=== PATIENT | female | born 1995 | race African-American/Black ===

== ENCOUNTER 2017-04-25 13:34 | Inpatient (IN) ==
[2017-04-25] MEDS ORDERED: SODIUM CHLORIDE 0.9% 1,000 ML IV STA (14:08)
[2017-04-25 14:20] LABS: Basophils # 0.1 10*3/uL (0.0-0.2); Basophils % 0.4 % (0.0-0.8); Eosinophils % 0.1 % (0.00-10.9); Hematocrit 36.5 VOL% (35.7-47.0); Hemoglobin 11.3 GM/DL (12.0-16.0); Immature Granulocytes Absolute 0.44 #; Lymphocytes # 1.6 10*3/uL (1.4-4.0); Lymphocytes % 10.5 % (21.3-54.2); Mean Corpuscular Hemoglobin 29 PG (27-34); Mean Corpuscular Volume 91.9 FL (87-102); Mean Platelet Volume 11.9 FL (9.6-12.0); Monocytes # 0.9 10*3/uL (0.11-0.8); Monocytes % 6.2 % (1.7-12.7); Neutrophils # 11.9 10*3/uL (1.4-7.4); Neutrophils % 79.8 % (38.7-73.9); Platelet Count 293 T/CUMM (130-400); Red Blood Count 3.97 MC/CUMM (3.8-5.5); Red Cell Distribution Width 12.8 % (9.3-17.3); White Blood Count 14.9 T/CUMM (4-12)
[2017-04-25 14:30] LABS: Apearance,Urine CLEAR (Clear); Bilirubin,Urine Negative (Negative); Blood, Urine Moderate mg/dL (Negative); Glucose,Urine (UA) >=500 mg/dL (Negative); Hyaline Casts,Urine 1 /LPF (0-3); Ketones,Urine 80 mg/dL (Negative); Nitrite,Urine Negative (Negative); Protein,Urine 30 MG/DL; RBC,Urine 2 /HPF (0-4); Urine Color Straw (Yellow); Urine Specific Gravity 1.014 (1.001-1.035); Urine Urobilinogen < 2.0 EU/DL (0.2-1.0); WBC,Urine 1 /HPF (0-6)
[2017-04-25] MEDS ORDERED: INSULIN REGULAR 100 UNIT/ML IV STA (14:32)
[2017-04-25 14:35] LABS: ABG Base Excess -20.3 MMOL/L (-2.5-2.5); ABG HCO3 6.8 MMOL/L (20-26); ABG Oxygen Saturation 98.7 % (95-100); ABG PO2 198.9 MM HG (80-95); ABG TCO2 7.4 MMOL/L (23-27)
[2017-04-25 14:37] LABS: ABG PCO2 20.2 MM HG (35-48); ABG PH 7.144 (7.35-7.45)
[2017-04-25 14:38] LABS: Barbiturates Screen,Urine Negative (Negative); Benzodiazepines Screen,Urine Negative (Negative); Cannabinoid Screen,Urine Negative (Negative); Opiate Screen,Urine Negative (Negative); Phencyclidine Screen,Urine Negative (Negative)
[2017-04-25] MEDS ORDERED: INSULIN REGULAR 100 UNIT/ML ONE (14:38)
[2017-04-25 14:46] LABS: Bilirubin,Total 0.7 MG/DL (0.2-1.0); Calcium 10.3 MG/DL (8.5-10.1); Osmolality,Calculated 318.2 MOS/KG (273-304); Potassium 5.3 MMOL/L (3.5-5.1); Total Protein 7.2 G/DL (6.4-8.3)
--- NOTE | 2017-04-25 14:53 | XRay Report ---
Exam: XR chest 1V portable Date: 04/25/2017 2:06 PM Indication: Altered mental status Comparison: 02/04/2017 Technical: AP portable Findings: A few reticular nodular densities are present perihilar regions. A wire superimposes the neck chest abdomen and telemetry leads are also present. Mediastinum is unremarkable. No obvious infiltrate or effusion. The heart is at upper limits of normal. Impression: 1. No acute cardiopulmonary pathology. PROCEDURE INTERPRETED AT [facility] DEPARTMENT OF RADIOLOGY Final Report Signed by: Dr. Jsoé Luis Gomez
[2017-04-25] MEDS ORDERED: INSULIN REGULAR 100 UNIT/ML IV ONE (14:54)
[2017-04-25] MEDS ORDERED: SODIUM CHLORIDE 0.9% IV PRN (14:54)
[2017-04-25] MEDS ORDERED: SODIUM CHLORIDE 0.9% 1,000 ML IV ONE ×2 (14:54→17:20)
[2017-04-25] MEDS ORDERED: DEXTROSE 50% 25 GM/50 ML VIAL IV PRN ×2 (14:54)
[2017-04-25] MEDS ORDERED: ACETAMINOPHEN 325 MG TABLET PO PRN (14:54)
[2017-04-25] MEDS ORDERED: SODIUM BICARB INJ 100 MEQ in STERILE WATER INJ 400 ML IV PRN (14:54)
[2017-04-25] MEDS ORDERED: POTASSIUM CHLORIDE RIDER 10 MEQ in PREMIX 1 EACH IV PRN (14:54)
[2017-04-25] MEDS ORDERED: MAGNESIUM SULF RIDER 2 GM in PREMIX 1 EACH IV PRN (14:54)
[2017-04-25] MEDS ORDERED: ONDANSETRON 4 MG/2 ML VIAL IV PRN (14:54)
[2017-04-25] MEDS ORDERED: MAGNESIUM SULF RIDER 4 GM in PREMIX 1 EACH IV PRN (14:54)
[2017-04-25] MEDS ORDERED: SODIUM PHOSPHATE IV PRN (14:54)
[2017-04-25] MEDS ORDERED: INSULIN REGULAR DRIP 100 ML IV SCH (15:00)
[2017-04-25] MEDS ORDERED: ENOXAPARIN 30 MG/0.3 ML SYRINGE SUBCUT SCH (15:00)
--- NOTE | 2017-04-25 15:03 | Hospitalist History & Physical ---
Assessment and Plan - Time spent with patient Time spent with patient: Greater than 30 minutes (1) DKA (diabetic ketoacidoses) Status: Acute Assessment and plan: Admit to CCU. Routine DKA protocols. Aggressive IV fluid hydration. Monitor with labs per protocol. Current Visit: Yes Qualifiers: Diabetes mellitus type: type 1 Diabetes mellitus complication detail: without coma Qualified Code(s): E10.10 - Type 1 diabetes mellitus with ketoacidosis without coma (2) ANGELA (acute kidney injury) Status: Acute Assessment and plan: Continue IV fluids. This is related to dehydration secondary to DKA. Current Visit: Yes (3) Lactic acidosis Status: Acute Assessment and plan: Secondary to hypotension and hypoperfusion secondary to DKA and dehydration with acute renal failure. Current Visit: Yes (4) Hypothyroidism Status: Chronic Current Visit: Yes Qualifiers: Hypothyroidism type: acquired Qualified Code(s): E03.9 - Hypothyroidism, unspecified (5) Down syndrome Status: Chronic Current Visit: Yes History of Present Illness History of present illness: Ms. Lowe is a 21 year old female Home Medications Medication Instructions Recorded Confirmed Type Insulin Lispro [HumaLOG] 10 unit SUBCUT BID #100 ml 02/06/17 Rx Insulin NPH [HumuLIN N] 17 unit SUBCUT QPM #100 ml 02/06/17 Rx Insulin NPH [HumuLIN N] 35 unit SUBCUT QAM #100 ml 02/06/17 Rx Pantoprazole Tab [Protonix Tab] 40 mg PO BID #60 tablet 02/06/17 Rx Levothyroxine Tab [Synthroid Tab] 75 mcg PO DAILY@0700 04/25/17 History Allergies Allergy/AdvReac Type Severity Reaction Status Date / Time No Known Allergies Allergy Verified 04/25/17 14:02 Medical,Surgical,& Family Hx - Medical History Cardio: History of: Hypertension No history of: Cardiac Dysrhythmia, Congenital Heart Disease Neurology: History of: Cerebrovascular Accident, Neurological Problems No history of: Seizures Endocrine: History of: Diabetes Mellitus (IDDM), Dyslipidemia, Thyroid Disorder Respiratory: No history of: Asthma - Surgical History Cardiac Surgeries: Patient Denies: Cardiac Catheterization HEENT Surgeries: Surgical HX of: Tonsilectomy & Adenoidectomy Abdominal Surgeries: Patient denies: Abdominal Surgery Reproductive Surgeries: Patient denies;: Genitourinary Surgery, Gynecologic Surgery - Family History Family History: Reports;: Family Diabetes (mother), Family Hypertension - Social History Smoking Status: Never smoker Frequency of Alcohol Use: None Type of Drug Use: None Exam - Constitutional Vitals: Period Temp Pulse Resp BP Sys/Robertson Pulse Ox Last 24 Hr 98.8 F 161 20 83/46 96 Results - Labs CBC & BMP: 04/25/17 13:49 04/25/17 14:09
--- NOTE | 2017-04-25 15:04 | Hospitalist History & Physical ---
Assessment and Plan - Time spent with patient Time spent with patient: Greater than 30 minutes (1) DKA (diabetic ketoacidoses) Status: Acute Assessment and plan: Admit to CCU. Routine DKA protocols. Aggressive IV fluid hydration. Monitor with labs per protocol. Current Visit: Yes Qualifiers: Diabetes mellitus type: type 1 Diabetes mellitus complication detail: without coma Qualified Code(s): E10.10 - Type 1 diabetes mellitus with ketoacidosis without coma (2) ANGELA (acute kidney injury) Status: Acute Assessment and plan: Continue IV fluids. This is related to dehydration secondary to DKA. Current Visit: Yes (3) Lactic acidosis Status: Acute Assessment and plan: Secondary to hypotension and hypoperfusion secondary to DKA and dehydration with acute renal failure. Current Visit: Yes (4) Hypothyroidism Status: Chronic Current Visit: Yes Qualifiers: Hypothyroidism type: acquired Qualified Code(s): E03.9 - Hypothyroidism, unspecified (5) Down syndrome Status: Chronic Current Visit: Yes History of Present Illness Chief complaint: Altered Mental Status History of present illness: Ms. Lowe is a 21 year old female carried into the ED by her Mother with c/o altered mental status. Patient has Down syndrome and is unable to provide any history. Mother says Patient became altered yesterday evening but is now lethargic. Mother says Patient was sleeping on the couch and would not wake upon stimuli. Patient has PMHx of HTN, CVA, IDDM, dyslipidemia, and thyroid disorder. Patient's Primary Care Provider is Dr. Rhoades. The patient is accompanied by her mother and father. They report she went to a birthday democrat yesterday. They deny any changes in her insulin regimen at home. They report that she looked a little dehydrated but was drinking fluids yesterday. Today she is tachycardic hypotensive and in DKA with a CO2 of 9 and a pH of 7.1. She is being admitted to the CCU for IV fluid hydration and IV insulin therapy. They deny any recent illness illness, no fever or chills. Home Medications Medication Instructions Recorded Confirmed Type Insulin Lispro [HumaLOG] 10 unit SUBCUT BID #100 ml 02/06/17 Rx Insulin NPH [HumuLIN N] 17 unit SUBCUT QPM #100 ml 02/06/17 Rx Insulin NPH [HumuLIN N] 35 unit SUBCUT QAM #100 ml 02/06/17 Rx Pantoprazole Tab [Protonix Tab] 40 mg PO BID #60 tablet 02/06/17 Rx Levothyroxine Tab [Synthroid Tab] 75 mcg PO DAILY@0700 04/25/17 History Allergies Allergy/AdvReac Type Severity Reaction Status Date / Time No Known Allergies Allergy Verified 04/25/17 14:02 Medical,Surgical,& Family Hx - Medical History Cardio: History of: Hypertension No history of: Cardiac Dysrhythmia, Congenital Heart Disease Neurology: History of: Cerebrovascular Accident, Neurological Problems No history of: Seizures Endocrine: History of: Diabetes Mellitus (IDDM), Dyslipidemia, Thyroid Disorder Respiratory: No history of: Asthma - Surgical History Cardiac Surgeries: Patient Denies: Cardiac Catheterization HEENT Surgeries: Surgical HX of: Tonsilectomy & Adenoidectomy Abdominal Surgeries: Patient denies: Abdominal Surgery Reproductive Surgeries: Patient denies;: Genitourinary Surgery, Gynecologic Surgery - Family History Family History: Reports;: Family Diabetes (mother), Family Hypertension - Social History Smoking Status: Never smoker Frequency of Alcohol Use: None Type of Drug Use: None Marital Status: Single Lives With:: Parent Functional capacity: independent ambulation ROS unobtainable: due to mental status, due to encephalopathy Exam - Constitutional Vitals: Period Temp Pulse Resp BP Sys/Robertson Pulse Ox Last 24 Hr 98.8 F 161 20 83/46 96 Exam: Constitutional System: Mild distress. No tremulousness. Minimally responsive. Head: Normocephalic, atraumatic. Ears, Nose and Throat System: No pain or tenderness. No epistaxis or discharge. Mucous membranes dry Eyes System: Pupils equal, round, and reactive. Extraocular muscles intact. Neck: Supple, without adenopathy, No jugular venous distention. No thyromegaly, neck mass, or prior surgery apparent. Respiratory System: Chest clear to auscultation. Cardiovascular System: Heart with tachycardic rate and rhythm. No murmur. GI System: Abdomen soft, nontender. Normo active bowel sounds present. Musculoskeletal System: limbs with no pedal edema. Full distal pulses. Neurological System: Altered mental status secondary to DKA Psychiatric System: Unable to assess secondary to mental status and clinical condition Results - Labs CBC & BMP: 04/25/17 13:49 04/25/17 14:09 Lab Results: I have reviewed the past 24 hour labs - EKG EKG shows: tachycardia - Diagnostic Findings Procedure: Abdominal x-ray: image reviewed by me, KUB x-ray: image reviewed by me Sepsis - Sepsis Possible / Suspected infection from: The patient's abnormal vital signs are related to DKA Sepsis documentation within 6 hours of presentation: fluid change - Physical Exam Respiratory exam: clear to auscultation bilaterally Capillary Refill: Greater Than 3 Seconds Peripheral pulses: Radial (L): 2+, Radial (R): 2+, Dorsalis Pedis (L) PM: 2+, Dorsalis Pedis (R) PM: 2+, Posterior Tibialis (L): 2+, Posterior Tibialis (R): 2 + Cardiovascular exam: tachycardia Skin exam: normal color
--- NOTE | 2017-04-25 15:11 | XRay Report ---
Exam: XR abdomen 1V Date: 04/25/2017 Indication: Central line guidewire placement Comparison: None Technical:Supine portable abdomen Findings: A wire superimposes the right abdomen appears be over the IVC iliac vein area on the left. The liver, spleen and renal shadows are not well seen. Nonspecific GI pattern is present. Bony structures are intact. Impression: 1. Nonspecific GI pattern. 2. Guidewire foreign body superimposes the chest abdomen and pelvis. Critical test report discussed with Dr. Bender. Dr. Love has been notified to retrieve the foreign body PROCEDURE INTERPRETED AT [facility] DEPARTMENT OF RADIOLOGY Final Report Signed by: Dr. José Luis Gomez
[2017-04-25] MEDS ORDERED: INSULIN REGULAR DRIP 100 ML IV ONE (15:14)
[2017-04-25 15:53] LABS: Band Neutrophils 2 % (0-10); Lymphocytes 13 % (20-55); Platelet Estimate Normal; Polychromasia Slight; Segmented Neutrophils 80 % (50-85); Total Cells Counted 100
--- NOTE | 2017-04-25 16:04 | Post Interventional Procedure ---
Pre-op diagnosis: Guide wire retained in SVC-IVC, fragile PIV access Post-op diagnosis: same Procedure: 1. Retrieval of guide wire via right subclavian vein 2. Triple lumen catheter placement in venotomy site Flouroscopy: 10.2 min Radiologist: Sinan Love Anesthesia: local Specimens: none sent Estimated blood loss: none Complications: none Description/Findings: Central line ok to use Assessment and Plan - Time spent with patient Time spent with patient: Greater than 30 minutes
--- NOTE | 2017-04-25 16:06 | Emergency Department Note ---
Lebron Medina Brooke, am scribing for, and in the presence of, Elsy Bender DO 14:28 . INapoleon Debra, DO, personally performed the services described in this documentation, ascribed by Tiffanie Diana in my presence, and it is both accurate and complete [id number] . Arrival - Arrival Chief Complaint: Altered Mental Status Stated Complaint: DEHYDRATED, NOT RESPONDING ED Nursing Triage Note: pt to er 20 with c/o having ams onset this am per mother. mother states pt began to become lethargic yesterday and then today she was sleeping on the couch and the mother tried to wake her up and she wouldnt arouse. Mode of Arrival: Carried Limitations: Altered Mental Status Source: Patient, Family (Mother), RN Notes Reviewed Time Seen by Provider: 04/25/17 14:00 - History of Present Illness HPI Narrative: Patient is a 21 year old female carried into the ED by her Mother with c/o altered mental status. Patient is a poor historian. Mother says Patient became altered yesterday evening but is now lethargic. Mother says Patient was sleeping on the couch and would not wake upon stimuli. Patient has PMHx of HTN, CVA, IDDM, dyslipidemia, and thyroid disorder. Patient's Primary Care Provider is Dr. Parish. Onset (ago): day(s) (1) Allergies/Adverse Reactions: Allergies Allergy/AdvReac Type Severity Reaction Status Date / Time No Known Allergies Allergy Verified 04/25/17 14:02 Home Medications: Home Medications Medication Instructions Recorded Confirmed Type Pantoprazole Tab [Protonix Tab] 40 mg PO BID #60 tablet 02/06/17 04/25/17 Rx Aspirin EC Tab 81 mg PO DAILY 04/25/17 04/25/17 History Insulin Lispro [HumaLOG] 10 unit SUBCUT QPM 04/25/17 04/25/17 History Insulin NPH [HumuLIN N] 10 unit SUBCUT QPM 04/25/17 04/25/17 History Insulin NPH [HumuLIN N] 40 unit SUBCUT QAM 04/25/17 04/25/17 History Insulin Regular [HumuLIN R] 1 unit SUBCUT AC LUNCH 04/25/17 04/25/17 History Levothyroxine Tab [Synthroid Tab] 75 mcg PO DAILY@0700 04/25/17 04/25/17 History Review of System - Review of System ROS unobtainable: due to mental status - Review of System Constitutional: Absent: fever Respiratory: Absent: respiratory distress Skin: Absent: rash Neurological: Present: other (lethargic- Altered mental status) Medical,Surgical,& Family Hx - Medical History Cardio: History of: Hypertension No history of: Cardiac Dysrhythmia, Congenital Heart Disease Neurology: History of: Cerebrovascular Accident, Neurological Problems No history of: Seizures Endocrine: History of: Diabetes Mellitus (IDDM), Dyslipidemia, Thyroid Disorder Respiratory: No history of: Asthma - Surgical History Cardiac Surgeries: Patient Denies: Cardiac Catheterization HEENT Surgeries: Surgical HX of: Tonsilectomy & Adenoidectomy Abdominal Surgeries: Patient denies: Abdominal Surgery Reproductive Surgeries: Patient denies;: Genitourinary Surgery, Gynecologic Surgery - Family History Family History: Reports;: Family Diabetes (mother), Family Hypertension - Social History Smoking Status: Never smoker Frequency of Alcohol Use: None Type of Drug Use: None Exam Vital Signs: Vital Signs Temperature 98.8 F 04/25/17 20:00 Pulse Rate 142 H 04/25/17 20:00 Respiratory Rate 18 04/25/17 20:00 Blood Pressure 88/33 04/25/17 20:00 O2 Sat by Pulse Oximetry 94 L 04/25/17 20:00 - General Exam limited due to: ALOC General appearance: lethargic - Head Head exam: Present: atraumatic, normocephalic - Respiratory Respiratory exam: Present: other (tachypnea) Procedures - Central Line Placement Left Femoral Time Out Performed: Yes Patient Placed on Monitor/Pulse Ox: Yes Prep: gloves Central Line Prep: Povidone-Iodine 1% Ultrasound Used for Placement: No Central Line Lumen Inserted: triple Complications: lost guide wire Additional Comments: called interventional radiologist to remove guide wire and put in triple lumen cvc Results - Labs CBC & BMP: 04/25/17 13:49 04/25/17 19:25 Lab Results: I have reviewed the patients labs Labs: Laboratory Tests 04/25/17 04/25/17 04/25/17 13:49 14:09 14:09 WBC 14.9 H RBC 3.97 Hgb 11.3 L Hct 36.5 MCV 91.9 MCH 29 MCHC 31.0 L RDW 12.8 Plt Count 293 MPV 11.9 Neut % (Auto) 79.8 H Lymph % (Auto) 10.5 L Coleman % (Auto) 6.2 Eos % (Auto) 0.1 Baso % (Auto) 0.4 Neut # (Auto) 11.9 H Lymph # (Auto) 1.6 Coleman # (Auto) 0.9 H Eos # (Auto) 0.0 Baso # (Auto) 0.1 Total Counted Pending Immature Gran % 3.0 Nucleated RBC % 0.0 Immature Gran # 0.44 Nucleated RBCs # 0.00 ABG pH ABG pCO2 ABG pO2 ABG HCO3 ABG Total CO2 ABG O2 Saturation ABG Base Excess Sodium 134 L Potassium 5.3 H Chloride 96 L Carbon Dioxide 9 L Anion Gap 34.3 H BUN 26 H Creatinine 1.80 H GFR Calculation 35 BUN/Creatinine Ratio 14.00 Glucose 925 H* Calculated Osmolality 318.2 H Lactic Acid Calcium 10.3 H Magnesium 2.0 Total Bilirubin 0.70 AST 23 ALT 34 Alkaline Phosphatase 136 H Total Protein 7.2 Albumin 3.0 L Globulin 4.2 H Albumin/Globulin Ratio 0.7 L Amylase 28 Lipase 47.0 L b-Hydroxybutyric mmol/L 5.1 H Urine Color Straw Urine Appearance Clear Urine pH 6.0 Ur Specific [place] 1.014 Urine Protein 30 Urine Glucose (UA) >=500 Urine Ketones 80 Urine Blood Moderate Urine Nitrate Negative Urine Bilirubin Negative Urine Urobilinogen < 2.0 H Urine Leukocytes Negative Urine RBC 2 Urine WBC 1 Hyaline Casts 1 Ur Culture Indicated? Not indicated Urine Test Negative Urine Opiates Screen Ur Barbiturates Screen Ur Phencyclidine Scrn U Amphetamine/Methamph U Benzodiazepines Scrn U Cocaine Metab Screen U Cannabinoids Screen 04/25/17 04/25/17 04/25/17 14:09 14:09 14:28 WBC RBC Hgb Hct MCV MCH MCHC RDW Plt Count MPV Neut % (Auto) Lymph % (Auto) Coleman % (Auto) Eos % (Auto) Baso % (Auto) Neut # (Auto) Lymph # (Auto) Coleman # (Auto) Eos # (Auto) Baso # (Auto) Total Counted Immature Gran % Nucleated RBC % Immature Gran # Nucleated RBCs # ABG pH 7.144 L* ABG pCO2 20.2 L* ABG pO2 198.9 H ABG HCO3 6.8 L ABG Total CO2 7.4 L ABG O2 Saturation 98.7 ABG Base Excess -20.3 L Sodium Potassium Chloride Carbon Dioxide Anion Gap BUN Creatinine GFR Calculation BUN/Creatinine Ratio Glucose Calculated Osmolality Lactic Acid 4.9 H Calcium Magnesium Total Bilirubin AST ALT Alkaline Phosphatase Total Protein Albumin Globulin Albumin/Globulin Ratio Amylase Lipase b-Hydroxybutyric mmol/L Urine Color Urine Appearance Urine pH Ur Specific [place] Urine Protein Urine Glucose (UA) Urine Ketones Urine Blood Urine Nitrate Urine Bilirubin Urine Urobilinogen Urine Leukocytes Urine RBC Urine WBC Hyaline Casts Ur Culture Indicated? Urine Test Urine Opiates Screen Negative Ur Barbiturates Screen Negative Ur Phencyclidine Scrn Negative U Amphetamine/Methamph Negative U Benzodiazepines Scrn Negative U Cocaine Metab Screen Negative U Cannabinoids Screen Negative - Diagnostic Findings Procedure: Chest x-ray: report reviewed by me (No acute cardiopulmonary pathology.) Disposition Clinical Impression: DKA (diabetic ketoacidoses) Case discussed with: patient's family Disposition: Still a Patient Condition: Critical
--- NOTE | 2017-04-25 16:19 | XRay Report ---
Exam: XR chest 1V Date: 04/25/2017 4:01 PM Indication: Central line placement Comparison: Earlier film today at 2:17 PM Technical: AP portable Findings: The guidewire has been removed from the right neck and chest with placement of a central venous catheter with the distal tip in the superior vena cava. The exam reveals no pneumothorax. The heart is normal in size. A few reticular nodular densities are present. Impression: 1. Removal of the guidewire foreign body from the right internal jugular superior inferior vena cava tracking through the heart into the abdomen and IVC on previous study 2. Interval placement of a right-sided central venous catheter without pneumothorax PROCEDURE INTERPRETED AT [facility] DEPARTMENT OF RADIOLOGY Final Report Signed by: Dr. José Luis Gomez
--- NOTE | 2017-04-25 16:21 | Interventional Radiology Rpt ---
IR foreign body retrival perc, US guide vascular access Indication: Guidewire lost intravascular, extending from the proximal right internal jugular vein near the skull base to the left common femoral vein. Patient is known to me from multiple prior PICC lines and has extremely difficult IV access issues. She is in DKA and requires ICU resuscitation. FLUOROSCOPIC-GUIDED RETRIEVAL OF GUIDEWIRE, TRIPLE-LUMEN CATHETER PLACEMENT Description: A formal timeout was performed. Maximum sterile barrier technique was instituted. Sonographic evaluation of the right subclavian region shows a patent subclavian vein. The vein was accessed with a micropuncture needle using sonographic guidance. Captured sonographic image documents position of the needle. Needle was exchanged over wire for a sheath. Through the sheath, several initial attempts were made to snare the guidewire at the confluence of the right internal jugular and right subclavian vein using a lead wire and 10 mm snare. However, this was not successful. Additionally, attempts to advance the snare into the right internal jugular vein. The right subclavian vein were unsuccessful. Therefore, this narrows advanced into the left common femoral vein. With moderate difficulty, the tip of the guidewire was snared. The snare would not slide easily along the wire, so the snare was closed and the guidewire retrieved by pulling it back upon itself from the left groin to the right subclavian vein sheath. After treating most of the wire, the wire was then redirected inferiorly into the right atrium. The sheath was removed and a triple lumen catheter was advanced over the wire. The wire was removed and the tip of the catheter situated at the RA-SVC junction. The catheter was anchored in place with suture. All 3 ports aspirated and flushed easily. Contrast: None. Fluoroscopy: 10.2 minutes, 6 images total. Impression: 1. Successful retrieval of guidewire as described. 2. Placement of triple-lumen catheter at the venotomy site after retrieval of the wire. PROCEDURE INTERPRETED AT [facility] DEPARTMENT OF RADIOLOGY Final Report Signed by: Sinan Love M.D.
[2017-04-25] MEDS: SODIUM CHLORIDE 0.9% 1,000 ML IV SCH ×5 (17:19→23:09)
[2017-04-25 18:33] LABS: Calcium 8.7 MG/DL (8.5-10.1); Osmolality,Calculated 314.8 MOS/KG (273-304); Potassium 3.7 MMOL/L (3.5-5.1)
[2017-04-25 19:28] LABS: ABG HCO3 14.3 MMOL/L (20-26); ABG Oxygen Saturation 98.6 % (95-100); ABG PCO2 24.3 MM HG (35-48); ABG PH 7.305 (7.35-7.45); ABG TCO2 11.1 MMOL/L (23-27); Pt O2 Delivery Device Room Air
--- NOTE | 2017-04-25 20:36 | Interventional Radiology Rpt ---
Exam: IR cvc insert nt >5 Date: 04/25/2017 8:16 PM Indication: Need for IV access DKA Comparison: None Findings: This study was performed earlier today by Dr. Love after he retrieve the loss guidewire he placed a central venous catheter from a right subclavian approach. Ultrasound images were stored and captured. Impression: 1. Satisfactory placement of a right sided subclavian catheter by Dr. Love in IR with ultrasound guidance for vascular access. PROCEDURE INTERPRETED AT [facility] DEPARTMENT OF RADIOLOGY Final Report Signed by: Dr. José Luis Gomez
[2017-04-25 21:23] LABS: ABG HCO3 7.8 MMOL/L (20-26); ABG Oxygen Saturation 97.8 % (95-100); ABG PH 7.226 (7.35-7.45); ABG PO2 121.9 MM HG (80-95); ABG TCO2 8.4 MMOL/L (23-27)
[2017-04-25] MEDS ORDERED: SODIUM CHLORIDE 0.9% 250 ML IV ONE (21:23)
[2017-04-25 21:25] LABS: ABG PCO2 19.2 MM HG (35-48)
[2017-04-25 23:32] LABS: Calcium 7.9 MG/DL (8.5-10.1); Osmolality,Calculated 317.4 MOS/KG (273-304); Potassium 4.3 MMOL/L (3.5-5.1)
[2017-04-25 23:55] LABS: ABG Base Excess -19.8 MMOL/L (-2.5-2.5); ABG HCO3 6.9 MMOL/L (20-26); ABG Oxygen Saturation 95.1 % (95-100); ABG PO2 93.3 MM HG (80-95); ABG TCO2 7.5 MMOL/L (23-27)
[2017-04-25] MEDS: SODIUM CHLOR 0.45% KCL 20 MEQ 20 MEQ/1,000 ML BAG IV SCH (23:55)
[2017-04-25 23:58] LABS: ABG PCO2 19.3 MM HG (35-48)
[2017-04-26] MEDS ORDERED: SODIUM BICARBONATE 50 MEQ/50 ML SYRINGE IV ONE ×2 (00:36→08:33)
[2017-04-26 03:28] LABS: Basophils % 0.2 % (0.0-0.8); Hematocrit 27.7 VOL% (35.7-47.0); Immature Granulocytes % 0.7 %; Immature Granulocytes Absolute 0.11 #; Lymphocytes # 2.5 10*3/uL (1.4-4.0); Lymphocytes % 15.3 % (21.3-54.2); Mean Corpuscular HGB Conc 31.4 GM/DL (32-36); Mean Corpuscular Hemoglobin 28 PG (27-34); Mean Corpuscular Volume 89.9 FL (87-102); Mean Platelet Volume 10.2 FL (9.6-12.0); Monocytes % 6.1 % (1.7-12.7); Neutrophils # 12.6 10*3/uL (1.4-7.4); Neutrophils % 77.7 % (38.7-73.9); Platelet Count 238 T/CUMM (130-400); Red Cell Distribution Width 12.8 % (9.3-17.3); White Blood Count 16.2 T/CUMM (4-12)
[2017-04-26 03:30] LABS: Hemoglobin 8.7 GM/DL (12.0-16.0); Red Blood Count 3.08 MC/CUMM (3.8-5.5)
[2017-04-26 03:42] LABS: Magnesium 1.6 MG/DL (1.8-2.4); Phosphorous 2.6 MG/DL (2.5-4.9)
[2017-04-26 03:49] LABS: ABG Base Excess -7.1 MMOL/L (-2.5-2.5); ABG HCO3 16.1 MMOL/L (20-26); ABG PCO2 25.4 MM HG (35-48); ABG PH 7.421 (7.35-7.45); ABG PO2 79.2 MM HG (80-95); ABG TCO2 16.9 MMOL/L (23-27)
[2017-04-26] MEDS: SODIUM CHLOR 0.45% KCL 20 MEQ 20 MEQ/1,000 ML BAG IV SCH ×3 (04:27→12:23)
[2017-04-26 04:48] LABS: Lymphocytes 15 % (20-55); Platelet Estimate Normal; Segmented Neutrophils 81 % (50-85); Total Cells Counted 100
[2017-04-26 04:49] LABS: Calcium 8.7 MG/DL (8.5-10.1); Osmolality,Calculated 318.4 MOS/KG (273-304); Potassium 3.8 MMOL/L (3.5-5.1)
--- NOTE | 2017-04-26 04:53 | EKG Report ---
Stationary ECG Study [facility] ER Test Date: 04/25/2017 1:45:55 PM Pat Name: GERI MCMAHON Department: Room: 108 Gender: F Sustainability Project Coordinator: JULIA Bowser : 1995 Requested by: Elsy Bender Order Number: [id number] Reading MD: LOTTIE MIDDLETON Intervals Leonidas Rate: 154 P: 999 NV: 0 QRS: 69 QRSD: 78 T: 37 QT: 280 QTc: 367 Interpretive Statements SUPRAVENTRICULAR TACHYCARDIA TALL T-WAVES, SUGGESTS HYPERKALEMIA Electronically Signed On 04-26-17 06:17:46 CDT by LOTTIE MIDDLETON [email or web address]
[2017-04-26] MEDS: DEXT 5% NACL 0.45% KCL 20 MEQ 20 MEQ/1,000 ML BAG IV SCH ×2 (05:32→12:17)
[2017-04-26] MEDS ORDERED: LEVOTHYROXINE 75 MCG TABLET PO SCH (07:00)
[2017-04-26 07:41] LABS: Calcium 8.2 MG/DL (8.5-10.1); Osmolality,Calculated 311.7 MOS/KG (273-304); Potassium 3.9 MMOL/L (3.5-5.1)
[2017-04-26] MEDS ORDERED: SODIUM CHLORIDE 0.45% 1,000 ML IV SCH (07:54)
[2017-04-26] MEDS ORDERED: EPINEPHrine 1 MG/10 ML SYRINGE ONE (08:33)
[2017-04-26 08:59] LABS: Basophils % 0.2 % (0.0-0.8); Hematocrit 27.8 VOL% (35.7-47.0); Hemoglobin 8.8 GM/DL (12.0-16.0); Immature Granulocytes % 0.5 %; Immature Granulocytes Absolute 0.03 #; Lymphocytes # 2.4 10*3/uL (1.4-4.0); Lymphocytes % 40.8 % (21.3-54.2); Mean Corpuscular HGB Conc 31.7 GM/DL (32-36); Mean Corpuscular Hemoglobin 29 PG (27-34); Mean Platelet Volume 10.2 FL (9.6-12.0); Monocytes # 0.2 10*3/uL (0.11-0.8); Monocytes % 2.7 % (1.7-12.7); Neutrophils # 3.3 10*3/uL (1.4-7.4); Neutrophils % 55.8 % (38.7-73.9); Platelet Count 225 T/CUMM (130-400); Red Blood Count 3.09 MC/CUMM (3.8-5.5); Red Cell Distribution Width 12.7 % (9.3-17.3); White Blood Count 5.9 T/CUMM (4-12)
[2017-04-26] MEDS ORDERED: PROPOFOL 1,000 MG/100 ML BOTTLE IV SCH (09:00)
[2017-04-26] MEDS ORDERED: AZITHROMYCIN INJ 500 MG in SODIUM CHLORIDE 0.9% 250 ML IV SCH (09:00)
--- NOTE | 2017-04-26 09:00 | Event Note ---
Intubation procedure note - Intubation Sedative: None Mg given sedative: None Paralytic: None Mg given paralytic: None Laryngoscope: Elyssa 3 the glide scope ET Tube Size: 7 Tube Secured Depth (cm): 20 Tube Secured Location: lips Tube Placement Confirmation: visualized tube passing through cords, equal breath sounds bilaterally, no breath sounds over epigastrium, confirmation by capnometry, confirmation detector color change Patient tolerated procedure intubation: well, no complications Additional Comments: The endotracheal tube was pulled back 2 cm after reviewing the x-ray. Please see the orders for ventilator settings.
--- NOTE | 2017-04-26 09:03 | Event Note ---
CODE DENNIS note LANIE DENNIS was called for patient with apneic respiratory failure. I arrived to find the patient unresponsive. She was being bagged by respiratory and chest compressions have been started by the nurses in the ICU. She was given 1 amp of bicarb and 1 round of epinephrine. An endotracheal tube was placed using the glide scope. The patient regained spontaneous circulation and was tachycardic with a heart rate in the 200s. This is likely secondary to the epinephrine she received. Chest x-ray shows a white out of the right lung. Endotracheal tube in good position. The patient was bolused with IV fluids. The patient was initially admitted to the hospital yesterday afternoon with diabetic ketoacidosis. This appears to be improving. Her acidosis and Have improved with insulin administration. She remains on insulin drip at 7 U/h and is receiving D5 half normal saline. After reviewing the chest x-ray, it is my opinion that her respiratory failure secondary to right lung pneumonia and possible mucous plugging. Consult has been placed for pulmonary for evaluation. I discussed the case with Dr. Devries who also reviewed the x-ray. Further recommendations will depend on her response to therapy. The patient's mother was at the bedside throughout the course of the CPR and resuscitation process.
[2017-04-26 09:04] LABS: INR 1.1; PT Patient Result 11.8 SECS
[2017-04-26 09:06] LABS: ABG Base Excess -4.2 MMOL/L (-2.5-2.5); ABG HCO3 20.8 MMOL/L (20-26); ABG Oxygen Saturation 90.7 % (95-100); ABG PCO2 34.5 MM HG (35-48); ABG PO2 59.7 MM HG (80-95); ABG TCO2 19.1 MMOL/L (23-27); Glucose Heart Surgery 202 MG/DL (74-106); Hematocrit Heart Surgery 24.8 PERCENT (37-47)
--- NOTE | 2017-04-26 09:07 | Hospitalist Progress Note ---
Assessment and Plan (1) Pneumonia Status: Acute Assessment and plan: Right lung whiteout on chest x-ray. This is an acute change from yesterday. Likely related to retained secretions versus aspiration. Consult pulmonary for bronchoscopy-discussed with Dr. Devries. Start vancomycin and Merrem and azithromycin. Sputum cultures and urine antigens ordered. Blood cultures obtained in the ED yesterday. Current Visit: Yes Qualifiers: Laterality: right Lung location: unspecified part of lung (2) DKA (diabetic ketoacidoses) Status: Acute Assessment and plan: Routine DKA protocols. Aggressive IV fluid hydration. Monitor with labs per protocol. Continue insulin drip and D5 half-normal saline per protocol. Anion gap is improving Current Visit: Yes Qualifiers: Diabetes mellitus type: type 1 Diabetes mellitus complication detail: without coma Qualified Code(s): E10.10 - Type 1 diabetes mellitus with ketoacidosis without coma (3) ANGELA (acute kidney injury) Status: Acute Assessment and plan: Continue IV fluids. This is related to dehydration secondary to DKA. Current Visit: Yes (4) Lactic acidosis Status: Acute Assessment and plan: Secondary to hypotension and hypoperfusion secondary to DKA and dehydration with acute renal failure. Current Visit: Yes (5) Hypothyroidism Status: Chronic Current Visit: Yes Qualifiers: Hypothyroidism type: acquired Qualified Code(s): E03.9 - Hypothyroidism, unspecified (6) Down syndrome Status: Chronic Current Visit: Yes Hospitalist: Subjective Interval history: The patient remains critically ill. She had acute respiratory failure this morning and a CODE BLUE was called. The patient has been intubated and is awaiting possible bronchoscopy for right lung pneumonia and possibly retained secretions. She remains on a D5 half-normal saline and insulin drip. She was given 2 Amps of bicarb during the CPR and resuscitation process. She was also bolused with normal saline. Exam - Constitutional Vitals: Period Temp Pulse Resp BP Sys/Robertson Pulse Ox Last 24 Hr 98.8 F-99.8 F 135-163 17-31 82-146/33-87 92-100 Exam: Constitutional System: Severe distress. No tremulousness. Minimally responsive. Now intubated and sedated Head: Normocephalic, atraumatic. Ears, Nose and Throat System: No pain or tenderness. Thick green nasal discharge noted. Mucous membranes moist. Endotracheal tube in place. Eyes System: Pupils equal, round, and reactive. Extraocular muscles intact. Neck: Supple, without adenopathy, No jugular venous distention. Respiratory System: Chest with rhonchi and decreased breath sounds to auscultation on the right compared to left. Cardiovascular System: Heart with tachycardic rate and rhythm. No murmur. GI System: Abdomen soft, nontender. Normo active bowel sounds present. Musculoskeletal System: limbs with no pedal edema. Full distal pulses. Neurological System: Unable to assess secondary to intubation and sedation with Diprivan Psychiatric System: Unable to assess secondary to mental status and clinical condition Results - Labs CBC & BMP: 04/26/17 08:38 04/26/17 06:47 Lab Results: I have reviewed the past 24 hour labs - Diagnostic Findings Procedure: Chest x-ray: image reviewed by me, report reviewed by me
--- NOTE | 2017-04-26 09:11 | XRay Report ---
Portable chest Date: 04/26/2017 Clinical history: Endotracheal tube placement Comparison: 04/26/2017 Technique: Portable AP sitting chest Findings: The heart remains normal in size. The tip of the endotracheal tube projects at the orifice of the right mainstem bronchus. Stable right subclavian venous catheter. Significant progressive parenchymal findings in the lungs, especially throughout the right lung with developing right pleural effusion. Impression: The tip of the endotracheal tube projects at the orifice the right mainstem bronchus. Subsequent films obtained immediately after this exam demonstrate retraction of the endotracheal tube. No pneumothorax is identified with stable right subclavian venous catheter. Significant progressive atelectasis/infiltration/edema with developing right pleural effusion. PROCEDURE INTERPRETED AT [facility] OF [facility] Final Report Signed by: Dr. Denice Edmondson
--- NOTE | 2017-04-26 09:12 | XRay Report ---
Portable chest Date: 04/26/2017 Clinical history: Endotracheal tube repositioning Comparison: 6 04/26/2017 Technique: Portable AP sitting chest Findings: The heart remains normal in size with stable right subclavian venous catheter. The tip of the endotracheal tube projects just above the level of the keeann. Extensive pleural-parenchymal findings persist the right hemithorax with air bronchograms noted. Additional diffuse left perihilar findings are redemonstrated. Stable mediastinum and osseous structures. Impression: Endotracheal tube now projects just above the level of the keenan. Residual extensive atelectasis/infiltration/edema in the right lung with developing right pleural effusion. Stable left perihilar atelectasis/infiltration/edema. Follow-up chest x-ray recommended. PROCEDURE INTERPRETED AT [facility] DEPARTMENT OF RADIOLOGY Final Report Signed by: Dr. Denice Edmondson
--- NOTE | 2017-04-26 09:19 | Pulmonology Consult Note ---
Assessment and Plan (1) Respiratory failure Status: Acute Assessment and plan: Patient currently is on the ventilator. ABGs marginal. Has a white out of the right lung. Will bronchoscope him that out and see if we can improve her oxygenation. Current Visit: Yes (2) Down syndrome Status: Chronic Assessment and plan: Increase his risk for aspiration. No known heart disease on her blood with down syndrome frequently do have heart disease Current Visit: Yes (3) DKA (diabetic ketoacidoses) Status: Acute Assessment and plan: Being managed by hospitalist service. Current Visit: Yes Qualifiers: Diabetes mellitus type: type 1 Diabetes mellitus complication detail: without coma Qualified Code(s): E10.10 - Type 1 diabetes mellitus with ketoacidosis without coma (4) Pneumonia Status: Acute Assessment and plan: Broad-spectrum antibiotics. We will get culture with bronchoscopy Current Visit: Yes Qualifiers: Laterality: right Lung location: unspecified part of lung History of Present Illness Chief complaint: Respiratory arrest History of present illness: Ms. Lowe is a 22 year old female who has Down syndrome. She came in yesterday with diabetic ketoacidosis and lactic acidosis. These had improved but this morning she had cough and thick sputum and apparently had an acute respiratory arrest. She was intubated and is now on the ventilator. Her chest x-ray shows an extensive right infiltrate with almost a white out of the right lung. It seems likely that she is aspirated. I will plan bronchoscopy to clean her out and get cultures. Mother was in the room gave a history that she does not have any chronic lung troubles she is aware of. Home Medications Medication Instructions Recorded Confirmed Type Pantoprazole Tab [Protonix Tab] 40 mg PO BID #60 tablet 02/06/17 04/25/17 Rx Aspirin EC Tab 81 mg PO DAILY 04/25/17 04/25/17 History Insulin Lispro [HumaLOG] 10 unit SUBCUT QPM 04/25/17 04/25/17 History Insulin NPH [HumuLIN N] 10 unit SUBCUT QPM 04/25/17 04/25/17 History Insulin NPH [HumuLIN N] 40 unit SUBCUT QAM 04/25/17 04/25/17 History Insulin Regular [HumuLIN R] 1 unit SUBCUT AC LUNCH 04/25/17 04/25/17 History Levothyroxine Tab [Synthroid Tab] 75 mcg PO DAILY@0700 04/25/17 04/25/17 History Allergies Allergy/AdvReac Type Severity Reaction Status Date / Time No Known Allergies Allergy Verified 04/25/17 14:02 ROS unobtainable: due to endotracheal tube Exam (Pulmonay) H&P - Constitutional Vitals: Period Temp Pulse Resp BP Sys/Robertson Pulse Ox Last 24 Hr 98.8 F-99.8 F 135-163 17-31 82-146/33-87 92-100 Exam: Patient is sedated on the ventilator. Pulse is around 130 respiratory rate around 30. No fever. Pupils react to light. Orotracheal tube in place. Neck is supple. Chest reveals decreased breath sounds on the right compared to left. Coarse rhonchi are heard. Heart rapid rate normal rhythm. No murmurs. Abdomen soft no masses. Bowel sounds present. Extremities no clubbing cyanosis edema Medical,Surgical,& Family Hx - Medical History Cardio: History of: Hypertension No history of: Cardiac Dysrhythmia, Congenital Heart Disease Neurology: History of: Cerebrovascular Accident, Neurological Problems No history of: Seizures Endocrine: History of: Diabetes Mellitus (IDDM), Dyslipidemia, Thyroid Disorder Respiratory: No history of: Asthma Gastrointestinal: History of: GERD - Surgical History Cardiac Surgeries: Patient Denies: Cardiac Catheterization HEENT Surgeries: Surgical HX of: Tonsilectomy & Adenoidectomy Abdominal Surgeries: Patient denies: Abdominal Surgery Reproductive Surgeries: Patient denies;: Genitourinary Surgery, Gynecologic Surgery - Family History Family History: Reports;: Family Diabetes (mother), Family Heart Disease (uncle) , Family Hypertension, Family Stroke (uncle) Denies;: Family Cancer - Social History Smoking Status: Never smoker Frequency of Alcohol Use: None Type of Drug Use: None Results - Labs CBC & BMP: 04/26/17 08:38 04/26/17 06:47 Lab Results: I have reviewed the past 24 hour labs - Diagnostic Findings Procedure: Chest x-ray: image reviewed by me (ET tube at right mainstem bronchus takeoff. Total is been repositioned since then. Extensive right infiltrate with near white out of the right lung. Left lung is clear.)
[2017-04-26] MEDS ORDERED: MORPHINE 2 MG/1 ML SYRINGE IV ONE (09:20)
[2017-04-26 09:21] LABS: Alanine Aminotransferase 30 U/L (13-56); Albumin 1.9 G/DL (3.4-5.0); Alkaline Phosphatase 83 U/L (45-117); Aspartate Amino Transferase 46 U/L (0-37); Bilirubin,Total < 0.39 MG/DL (0.2-1.0); Blood Urea Nitrogen 21 MG/DL (7-18); Calcium 7.9 MG/DL (8.5-10.1); Glucose 204 MG/DL (74-106); Osmolality,Calculated 317.2 MOS/KG (273-304); Potassium 3.4 MMOL/L (3.5-5.1); Sodium 156 MMOL/L (136-145); Total Protein 4.9 G/DL (6.4-8.3)
--- NOTE | 2017-04-26 09:33 | Operative Note ---
Date of procedure: 04/26/17 (Fiberoptic bronchoscopy with bronchial wash) Pre-op diagnosis: Respiratory failure, acute right pulmonary infiltrate suspect aspiration Post-op diagnosis: same Procedure: After an appropriate timeout to be sure we were dealing with Cori Lowe, patient's ventilator was turned to 100% oxygen. She was given 2 mg of morphine intravenously to the point of sedation. Fiberoptic bronchoscope was introduced via the side arm of the endotracheal tube. Tip of the tube was very close to the keenan and it was repositioned 2 cm higher. It was resecured. We reintroduced the bronchoscope and noted diffuse erythema primarily in the right lung. Left lung was relatively spared. There were some foamy secretions on the right side. No endobronchial lesions. No foreign bodies. No mucous plug. Using saline irrigation lavaged the right lung and obtain specimen for cultures. Bronchoscope was removed and the patient remained on the ventilator in the ICU in stable condition. Anesthesia: conscious sedation Surgeon / Physician: Kenny Devries Estimated blood loss: none Specimens: other (Bronchial washings for culture) Condition: stable Disposition: ICU Results - Labs CBC & BMP: 04/26/17 08:38 04/26/17 08:38 Discharge Plan - Discharge Medications No Action RX: Pantoprazole Tab [Protonix Tab] 40 mg PO BID #60 tablet Levothyroxine Tab [Synthroid Tab] 75 mcg PO DAILY@0700 Insulin Lispro [HumaLOG] 10 unit SUBCUT QPM Insulin Regular [HumuLIN R] 1 unit SUBCUT AC LUNCH RX: Aspirin EC Tab 81 mg PO DAILY Insulin NPH [HumuLIN N] 40 unit SUBCUT QAM Insulin NPH [HumuLIN N] 10 unit SUBCUT QPM - Follow Up or Referral - Forms/Instructions
[2017-04-26 09:37] LABS: Band Neutrophils 9 % (0-10); Hypochromasia 1+; Lymphocytes 47 % (20-55); Metamyelocytes 3 %; Segmented Neutrophils 35 % (50-85); Total Cells Counted 100
[2017-04-26 09:38] LABS: Platelet Estimate Adequate
--- NOTE | 2017-04-26 09:51 | XRay Report ---
Portable chest Date: 04/26/2017 Clinical history: Shortness of breath Comparison: 04/25/2017 Technique: Portable AP sitting chest Findings: The heart is normal in size with stable right subclavian venous catheter. Progressive diffuse parenchymal findings especially in the right lung with small right pleural effusion. Stable mediastinum and osseous structures. Impression: Progressive bilateral infiltration/edema with associated atelectasis and small right pleural effusion. PROCEDURE INTERPRETED AT [facility] DEPARTMENT OF RADIOLOGY Final Report Signed by: Dr. Denice Edmondson
[2017-04-26] MEDS ORDERED: MIDAZOLAM 2 MG/2 ML VIAL IV ONE (09:59)
[2017-04-26] MEDS ORDERED: MIDAZOLAM 100 MG in SODIUM CHLORIDE 0.9% 80 ML IV SCH (10:00)
[2017-04-26] MEDS ORDERED: MIDAZOLAM 2 MG/2 ML VIAL ONE (10:00)
[2017-04-26] MEDS ORDERED: MEROPENEM 500 MG in SODIUM CHLORIDE 0.9% 100 ML IV SCH (10:00)
[2017-04-26] MEDS ORDERED: VANCOMYCIN INJ 750 MG in SODIUM CHLORIDE 0.9% 250 ML IV ONE (11:00)
[2017-04-26 11:02] LABS: ABG Base Excess -4.1 MMOL/L (-2.5-2.5); ABG HCO3 20.9 MMOL/L (20-26); ABG Oxygen Saturation 90.9 % (95-100); ABG PCO2 38.5 MM HG (35-48); ABG PH 7.348 (7.35-7.45); ABG PO2 62.1 MM HG (80-95); ABG TCO2 19.6 MMOL/L (23-27); Glucose Heart Surgery 141 MG/DL (74-106); Hematocrit Heart Surgery 27.9 PERCENT (37-47); Potassium Heart/CVR 3.5 MMOL/L (3.5-5.1)
[2017-04-26] MEDS ORDERED: PHENYLEPHRINE DRIP 40 MG/250 ML PREMIX IV ONE (11:17)
[2017-04-26] MEDS ORDERED: PHENYLEPHRINE DRIP 40 MG/250 ML PREMIX IV SCH (11:30)
[2017-04-26] MEDS ORDERED: FUROSEMIDE 40 MG/4 ML VIAL IV ONE (11:42)
--- NOTE | 2017-04-26 11:42 | Event Note ---
CODE BLUE note The patient became hypotensive and lost a pulse. She received 1 dose of epinephrine and chest compressions were started. She is notably hypoxic and has bloody frothy material coming out of the ET tube. This was precluded by hypotension secondary to sedation including Versed and Diprivan. She has regained spontaneous pulse and has a blood pressure of 110/60 on Jeremie-Synephrine and Levophed. Critical care time spent with this patient excluding procedures up until this point is 70 minutes.
[2017-04-26] MEDS ORDERED: HEPARIN/NACL 0.9% 2 UNITS/ML 500 ML IV ONE (11:45)
[2017-04-26] MEDS ORDERED: FUROSEMIDE 40 MG/4 ML VIAL ONE (11:45)
--- NOTE | 2017-04-26 11:49 | XRay Report ---
Portable chest Date: 04/26/2016 Clinical history: Post bronchoscopy, code Comparison: 04/26/2017 Technique: Portable AP sitting chest Findings: The heart remains normal in size. The endotracheal tube is in satisfactory position above the keenan. Stable right subclavian venous catheter. Extensive parenchymal findings persist in the right lung with progressive air bronchograms. Progressive diffuse left perihilar parenchymal findings. Stable mediastinum and osseous structures. Impression: Endotracheal tube is in satisfactory position with stable right subclavian venous catheter. Dense consolidation/atelectasis involving the right lung with progressive air bronchograms and minimally progressive aeration. Progressive left perihilar infiltration/edema/atelectasis. No pneumothorax. PROCEDURE INTERPRETED AT [facility] DEPARTMENT OF RADIOLOGY Final Report Signed by: Dr. Denice Edmondson
[2017-04-26] MEDS ORDERED: ALBUMIN 25% 12.5 GM in PREMIX 1 EACH IV ONE (12:00)
[2017-04-26 12:21] LABS: Calcium 7.5 MG/DL (8.5-10.1); Osmolality,Calculated 309.3 MOS/KG (273-304); Potassium 3.3 MMOL/L (3.5-5.1)
--- NOTE | 2017-04-26 14:23 | Discharge Summary ---
Hospital Course - Hospital Course Hospital Course: 22-year-old -[place] female admitted to the hospital with diabetic ketoacidosis. She was found to have an elevated blood sugar greater than 900 and a CO2 of 9 with a metabolic acidosis. She was admitted to the intensive care unit and received IV fluids IV insulin. Her DKA was improving and her gap was closing with correction of her metabolic acidosis with IV insulin administration. Unfortunately the patient developed significant respiratory distress and respiratory failure with a white out of the right lung. She went pulseless and apneic this morning requiring intubation and mechanical ventilation with CPR. Furthermore, she was seen in consultation by pulmonary and underwent bronchoscopy. No mucous plugging was noted however changes consistent with gastric acid aspiration were noted in the right lung. The patient continued to deteriorate over the next several hours requiring pressors and chest compressions and epinephrine several times. With her mother at the bedside throughout her multiple resuscitation events, she decided to make her DNR. Ultimately the patient succumbed to her despite aggressive medical therapy including dopamine, Jeremie-Synephrine, epinephrine, chest compressions, mechanical ventilation and antibiotic support. Time of is 1410. The patient's family was at the bedside at the time of her . They have asked that all supportive devices be removed in preparation for the homes arrival. - Time spent with patient Time with patient DS: Greater than 30 minutes (In total, critical care time spent with this patient today, excluding procedure time, was 120 minutes) Diagnosis - Discharge Diagnosis (1) Pneumonia Status: Acute (2) DKA (diabetic ketoacidoses) Status: Acute (3) ANGELA (acute kidney injury) Status: Acute (4) Lactic acidosis Status: Acute (5) Hypothyroidism Status: Chronic (6) Down syndrome Status: Chronic Discharge Plan - Discharge Data Disposition: - Discharge Medications No Action Pantoprazole Tab [Protonix Tab] 40 mg PO BID #60 tablet Levothyroxine Tab [Synthroid Tab] 75 mcg PO DAILY@0700 Insulin Lispro [HumaLOG] 10 unit SUBCUT QPM Insulin Regular [HumuLIN R] 1 unit SUBCUT AC LUNCH Aspirin EC Tab 81 mg PO DAILY Insulin NPH [HumuLIN N] 40 unit SUBCUT QAM Insulin NPH [HumuLIN N] 10 unit SUBCUT QPM - Follow Up or Referral - Forms/Instructions Exam - Constitutional Vitals: Period Temp Pulse Resp BP Sys/Robertson Pulse Ox Last 24 Hr 98.8 F-99.8 F 135-163 17-50 82-146/33-87 86-100 Discharge Results Procedures and tests throughout hospitalization: Pending Orders 04/25/17 14:22 Blood Culture Stat 04/25/17 14:55 Urine Culture Stat 04/26/17 08:38 Blood Culture Stat Streptococcus pneumoniae Ag, U Routine 04/26/17 08:49 Legionella Ag, Urine Routine Sputum Culture and Gram Stain Routine 04/26/17 09:30 Bronchial Washings C & Gram St Routine 04/26/17 15:00 BMP [Basic Metabolic Panel] Routine 04/26/17 19:00 BMP [Basic Metabolic Panel] Routine 04/27/17 04:00 XR chest 1V portable IN AM Comp Blood Count Auto Diff IN AM Comprehensive Metabolic Panel IN AM MRSA Surveillence, Inf Control Routine Labs on day of discharge: Labs from last 24 hours 04/26/17 04/26/17 04/26/17 11:45 11:04 10:50 WBC RBC Hgb Hct MCV MCH MCHC RDW Plt Count MPV Neut % (Auto) Lymph % (Auto) [place] % (Auto) Eos % (Auto) Baso % (Auto) Neut # (Auto) Lymph # (Auto) [place] # (Auto) Eos # (Auto) Baso # (Auto) Total Counted Immature Gran % Nucleated RBC % Immature Gran # Segmented Neutrophils Band Neutrophils Lymphocytes Monocytes Metamyelocytes Nucleated RBCs # Platelet Estimate Polychromasia Hypochromasia INR PT Patient/Control Mix ABG pH 7.348 L ABG pCO2 38.5 ABG pO2 62.1 L ABG HCO3 20.9 ABG Total CO2 19.6 L ABG O2 Saturation 90.9 L ABG Base Excess -4.1 L Hemoglobin 9.0 L Hematocrit 27.9 L FiO2 Sodium 155 H Potassium 3.3 L 3.5 Chloride 122 H Carbon Dioxide 23 Anion Gap 13.3 BUN 20 H Creatinine 1.20 H GFR Calculation 58 BUN/Creatinine Ratio 16.00 Glucose 100 141 H POC Glucose 149 H Hemoglobin A1c Calculated Osmolality 309.3 H Lactic Acid Calcium 7.5 L Phosphorus Magnesium Total Bilirubin AST ALT Alkaline Phosphatase Total Protein Albumin Globulin Albumin/Globulin Ratio Amylase Lipase b-Hydroxybutyric mmol/L Urine Color Urine Appearance Urine pH Ur Specific [place] Urine Protein Urine Glucose (UA) Urine Ketones Urine Blood Urine Nitrate Urine Bilirubin Urine Urobilinogen Urine Leukocytes Urine RBC Urine WBC Hyaline Casts Ur Culture Indicated? Urine Test Urine Opiates Screen Ur Barbiturates Screen Ur Phencyclidine Scrn U Amphetamine/Methamph U Benzodiazepines Scrn U Cocaine Metab Screen U Cannabinoids Screen 04/26/17 04/26/17 04/26/17 09:55 09:00 08:38 WBC RBC Hgb Hct MCV MCH MCHC RDW Plt Count MPV Neut % (Auto) Lymph % (Auto) [place] % (Auto) Eos % (Auto) Baso % (Auto) Neut # (Auto) Lymph # (Auto) [place] # (Auto) Eos # (Auto) Baso # (Auto) Total Counted Immature Gran % Nucleated RBC % Immature Gran # Segmented Neutrophils Band Neutrophils Lymphocytes Monocytes Metamyelocytes Nucleated RBCs # Platelet Estimate Polychromasia Hypochromasia INR 1.1 PT Patient/Control Mix 11.8 ABG pH 7.380 ABG pCO2 34.5 L ABG pO2 59.7 L ABG HCO3 20.8 ABG Total CO2 19.1 L ABG O2 Saturation 90.7 L ABG Base Excess -4.2 L Hemoglobin 8.0 L Hematocrit 24.8 L FiO2 Sodium Potassium 3.0 L Chloride Carbon Dioxide Anion Gap BUN Creatinine GFR Calculation BUN/Creatinine Ratio Glucose 202 H POC Glucose 219 H Hemoglobin A1c Calculated Osmolality Lactic Acid Calcium Phosphorus Magnesium Total Bilirubin AST ALT Alkaline Phosphatase Total Protein Albumin Globulin Albumin/Globulin Ratio Amylase Lipase b-Hydroxybutyric mmol/L Urine Color Urine Appearance Urine pH Ur Specific [place] Urine Protein Urine Glucose (UA) Urine Ketones Urine Blood Urine Nitrate Urine Bilirubin Urine Urobilinogen Urine Leukocytes Urine RBC Urine WBC Hyaline Casts Ur Culture Indicated? Urine Test Urine Opiates Screen Ur Barbiturates Screen Ur Phencyclidine Scrn U Amphetamine/Methamph U Benzodiazepines Scrn U Cocaine Metab Screen U Cannabinoids Screen 04/26/17 04/26/17 04/26/17 08:38 08:38 08:38 WBC 5.9 D RBC 3.09 L Hgb 8.8 L Hct 27.8 L MCV 90.0 MCH 29 MCHC 31.7 L RDW 12.7 Plt Count 225 MPV 10.2 Neut % (Auto) 55.8 Lymph % (Auto) 40.8 [place] % (Auto) 2.7 Eos % (Auto) 0.0 Baso % (Auto) 0.2 Neut # (Auto) 3.3 Lymph # (Auto) 2.4 [place] # (Auto) 0.2 Eos # (Auto) 0.0 Baso # (Auto) 0.0 Total Counted 100 Immature Gran % 0.5 Nucleated RBC % 0.0 Immature Gran # 0.03 Segmented Neutrophils 35 L Band Neutrophils 9 Lymphocytes 47 Monocytes 6 Metamyelocytes 3 Nucleated RBCs # 0.00 Platelet Estimate Adequate Polychromasia Hypochromasia 1+ INR PT Patient/Control Mix ABG pH ABG pCO2 ABG pO2 ABG HCO3 ABG Total CO2 ABG O2 Saturation ABG Base Excess Hemoglobin Hematocrit FiO2 Sodium 156 H Potassium 3.4 L Chloride 120 H Carbon Dioxide 25 Anion Gap 14.4 BUN 21 H Creatinine 1.20 H GFR Calculation 58 BUN/Creatinine Ratio 17.00 Glucose 204 H POC Glucose Hemoglobin A1c Calculated Osmolality 317.2 H Lactic Acid 5.6 H Calcium 7.9 L Phosphorus Magnesium Total Bilirubin < 0.39 AST 46 H ALT 30 Alkaline Phosphatase 83 Total Protein 4.9 L Albumin 1.9 L Globulin 3.0 Albumin/Globulin Ratio 0.6 L Amylase Lipase b-Hydroxybutyric mmol/L Urine Color Urine Appearance Urine pH Ur Specific [place] Urine Protein Urine Glucose (UA) Urine Ketones Urine Blood Urine Nitrate Urine Bilirubin Urine Urobilinogen Urine Leukocytes Urine RBC Urine WBC Hyaline Casts Ur Culture Indicated? Urine Test Urine Opiates Screen Ur Barbiturates Screen Ur Phencyclidine Scrn U Amphetamine/Methamph U Benzodiazepines Scrn U Cocaine Metab Screen U Cannabinoids Screen 04/26/17 04/26/17 04/26/17 08:38 08:11 06:53 WBC RBC Hgb Hct MCV MCH MCHC RDW Plt Count MPV Neut % (Auto) Lymph % (Auto) [place] % (Auto) Eos % (Auto) Baso % (Auto) Neut # (Auto) Lymph # (Auto) [place] # (Auto) Eos # (Auto) Baso # (Auto) Total Counted Immature Gran % Nucleated RBC % Immature Gran # Segmented Neutrophils Band Neutrophils Lymphocytes Monocytes Metamyelocytes Nucleated RBCs # Platelet Estimate Polychromasia Hypochromasia INR PT Patient/Control Mix ABG pH ABG pCO2 ABG pO2 ABG HCO3 ABG Total CO2 ABG O2 Saturation ABG Base Excess Hemoglobin Hematocrit FiO2 Sodium Potassium Chloride Carbon Dioxide Anion Gap BUN Creatinine GFR Calculation BUN/Creatinine Ratio Glucose POC Glucose 235 H 292 H Hemoglobin A1c Calculated Osmolality Lactic Acid Calcium Phosphorus Magnesium 2.1 Total Bilirubin AST ALT Alkaline Phosphatase Total Protein Albumin Globulin Albumin/Globulin Ratio Amylase Lipase b-Hydroxybutyric mmol/L Urine Color Urine Appearance Urine pH Ur Specific [place] Urine Protein Urine Glucose (UA) Urine Ketones Urine Blood Urine Nitrate Urine Bilirubin Urine Urobilinogen Urine Leukocytes Urine RBC Urine WBC Hyaline Casts Ur Culture Indicated? Urine Test Urine Opiates Screen Ur Barbiturates Screen Ur Phencyclidine Scrn U Amphetamine/Methamph U Benzodiazepines Scrn U Cocaine Metab Screen U Cannabinoids Screen 04/26/17 04/26/17 04/26/17 06:47 06:09 05:17 WBC RBC Hgb Hct MCV MCH MCHC RDW Plt Count MPV Neut % (Auto) Lymph % (Auto) [place] % (Auto) Eos % (Auto) Baso % (Auto) Neut # (Auto) Lymph # (Auto) [place] # (Auto) Eos # (Auto) Baso # (Auto) Total Counted Immature Gran % Nucleated RBC % Immature Gran # Segmented Neutrophils Band Neutrophils Lymphocytes Monocytes Metamyelocytes Nucleated RBCs # Platelet Estimate Polychromasia Hypochromasia INR PT Patient/Control Mix ABG pH ABG pCO2 ABG pO2 ABG HCO3 ABG Total CO2 ABG O2 Saturation ABG Base Excess Hemoglobin Hematocrit FiO2 Sodium 152 H Potassium 3.9 Chloride 120 H Carbon Dioxide 16 L Anion Gap 19.9 H BUN 22 H Creatinine 1.00 GFR Calculation 72 BUN/Creatinine Ratio 22.00 H Glucose 246 H POC Glucose 302 H 193 H Hemoglobin A1c Calculated Osmolality 311.7 H Lactic Acid Calcium 8.2 L Phosphorus Magnesium Total Bilirubin AST ALT Alkaline Phosphatase Total Protein Albumin Globulin Albumin/Globulin Ratio Amylase Lipase b-Hydroxybutyric mmol/L Urine Color Urine Appearance Urine pH Ur Specific [place] Urine Protein Urine Glucose (UA) Urine Ketones Urine Blood Urine Nitrate Urine Bilirubin Urine Urobilinogen Urine Leukocytes Urine RBC Urine WBC Hyaline Casts Ur Culture Indicated? Urine Test Urine Opiates Screen Ur Barbiturates Screen Ur Phencyclidine Scrn U Amphetamine/Methamph U Benzodiazepines Scrn U Cocaine Metab Screen U Cannabinoids Screen 04/26/17 04/26/17 04/26/17 04:06 03:29 03:05 WBC RBC Hgb Hct MCV MCH MCHC RDW Plt Count MPV Neut % (Auto) Lymph % (Auto) [place] % (Auto) Eos % (Auto) Baso % (Auto) Neut # (Auto) Lymph # (Auto) [place] # (Auto) Eos # (Auto) Baso # (Auto) Total Counted Immature Gran % Nucleated RBC % Immature Gran # Segmented Neutrophils Band Neutrophils Lymphocytes Monocytes Metamyelocytes Nucleated RBCs # Platelet Estimate Polychromasia Hypochromasia INR PT Patient/Control Mix ABG pH 7.421 ABG pCO2 25.4 L ABG pO2 79.2 L ABG HCO3 16.1 L ABG Total CO2 16.9 L ABG O2 Saturation 96.0 ABG Base Excess -7.1 L Hemoglobin Hematocrit FiO2 Sodium Potassium Chloride Carbon Dioxide Anion Gap BUN Creatinine GFR Calculation BUN/Creatinine Ratio Glucose POC Glucose 291 H 400 H Hemoglobin A1c Calculated Osmolality Lactic Acid Calcium Phosphorus Magnesium Total Bilirubin AST ALT Alkaline Phosphatase Total Protein Albumin Globulin Albumin/Globulin Ratio Amylase Lipase b-Hydroxybutyric mmol/L Urine Color Urine Appearance Urine pH Ur Specific [place] Urine Protein Urine Glucose (UA) Urine Ketones Urine Blood Urine Nitrate Urine Bilirubin Urine Urobilinogen Urine Leukocytes Urine RBC Urine WBC Hyaline Casts Ur Culture Indicated? Urine Test Urine Opiates Screen Ur Barbiturates Screen Ur Phencyclidine Scrn U Amphetamine/Methamph U Benzodiazepines Scrn U Cocaine Metab Screen U Cannabinoids Screen 04/26/17 04/26/17 04/26/17 03:00 03:00 03:00 WBC 16.2 H RBC 3.08 L D Hgb 8.7 L D Hct 27.7 L MCV 89.9 MCH 28 MCHC 31.4 L RDW 12.8 Plt Count 238 MPV 10.2 Neut % (Auto) 77.7 H Lymph % (Auto) 15.3 L [place] % (Auto) 6.1 Eos % (Auto) 0.0 Baso % (Auto) 0.2 Neut # (Auto) 12.6 H Lymph # (Auto) 2.5 [place] # (Auto) 1.0 H Eos # (Auto) 0.0 Baso # (Auto) 0.0 Total Counted 100 Immature Gran % 0.7 Nucleated RBC % 0.0 Immature Gran # 0.11 Segmented Neutrophils 81 Band Neutrophils Lymphocytes 15 L Monocytes 4 Metamyelocytes Nucleated RBCs # 0.00 Platelet Estimate Normal Polychromasia Hypochromasia INR PT Patient/Control Mix ABG pH ABG pCO2 ABG pO2 ABG HCO3 ABG Total CO2 ABG O2 Saturation ABG Base Excess Hemoglobin Hematocrit FiO2 Sodium Potassium Chloride Carbon Dioxide Anion Gap BUN Creatinine GFR Calculation BUN/Creatinine Ratio Glucose POC Glucose Hemoglobin A1c 11.4 H Calculated Osmolality Lactic Acid Calcium Phosphorus 2.6 Magnesium 1.6 L Total Bilirubin AST ALT Alkaline Phosphatase Total Protein Albumin Globulin Albumin/Globulin Ratio Amylase Lipase b-Hydroxybutyric mmol/L Urine Color Urine Appearance Urine pH Ur Specific [place] Urine Protein Urine Glucose (UA) Urine Ketones Urine Blood Urine Nitrate Urine Bilirubin Urine Urobilinogen Urine Leukocytes Urine RBC Urine WBC Hyaline Casts Ur Culture Indicated? Urine Test Urine Opiates Screen Ur Barbiturates Screen Ur Phencyclidine Scrn U Amphetamine/Methamph U Benzodiazepines Scrn U Cocaine Metab Screen U Cannabinoids Screen 04/26/17 04/26/17 04/26/17 03:00 02:02 01:07 WBC RBC Hgb Hct MCV MCH MCHC RDW Plt Count MPV Neut % (Auto) Lymph % (Auto) [place] % (Auto) Eos % (Auto) Baso % (Auto) Neut # (Auto) Lymph # (Auto) [place] # (Auto) Eos # (Auto) Baso # (Auto) Total Counted Immature Gran % Nucleated RBC % Immature Gran # Segmented Neutrophils Band Neutrophils Lymphocytes Monocytes Metamyelocytes Nucleated RBCs # Platelet Estimate Polychromasia Hypochromasia INR PT Patient/Control Mix ABG pH ABG pCO2 ABG pO2 ABG HCO3 ABG Total CO2 ABG O2 Saturation ABG Base Excess Hemoglobin Hematocrit FiO2 Sodium 154 H Potassium 3.8 Chloride 120 H Carbon Dioxide 18 L Anion Gap 19.8 H BUN 23 H Creatinine 1.20 H GFR Calculation 57 BUN/Creatinine Ratio 19.00 Glucose 281 H 460 H POC Glucose 427 H Hemoglobin A1c Calculated Osmolality 318.4 H Lactic Acid Calcium 8.7 Phosphorus Magnesium Total Bilirubin AST ALT Alkaline Phosphatase Total Protein Albumin Globulin Albumin/Globulin Ratio Amylase Lipase b-Hydroxybutyric mmol/L Urine Color Urine Appearance Urine pH Ur Specific [place] Urine Protein Urine Glucose (UA) Urine Ketones Urine Blood Urine Nitrate Urine Bilirubin Urine Urobilinogen Urine Leukocytes Urine RBC Urine WBC Hyaline Casts Ur Culture Indicated? Urine Test Urine Opiates Screen Ur Barbiturates Screen Ur Phencyclidine Scrn U Amphetamine/Methamph U Benzodiazepines Scrn U Cocaine Metab Screen U Cannabinoids Screen 04/26/17 04/26/17 04/26/17 01:04 00:07 00:07 WBC RBC Hgb Hct MCV MCH MCHC RDW Plt Count MPV Neut % (Auto) Lymph % (Auto) [place] % (Auto) Eos % (Auto) Baso % (Auto) Neut # (Auto) Lymph # (Auto) [place] # (Auto) Eos # (Auto) Baso # (Auto) Total Counted Immature Gran % Nucleated RBC % Immature Gran # Segmented Neutrophils Band Neutrophils Lymphocytes Monocytes Metamyelocytes Nucleated RBCs # Platelet Estimate Polychromasia Hypochromasia INR PT Patient/Control Mix ABG pH ABG pCO2 ABG pO2 ABG HCO3 ABG Total CO2 ABG O2 Saturation ABG Base Excess Hemoglobin Hematocrit FiO2 Sodium Potassium Chloride Carbon Dioxide Anion Gap BUN Creatinine GFR Calculation BUN/Creatinine Ratio Glucose 494 H POC Glucose > 500 H* > 500 H* Hemoglobin A1c Calculated Osmolality Lactic Acid Calcium Phosphorus Magnesium Total Bilirubin AST ALT Alkaline Phosphatase Total Protein Albumin Globulin Albumin/Globulin Ratio Amylase Lipase b-Hydroxybutyric mmol/L Urine Color Urine Appearance Urine pH Ur Specific [place] Urine Protein Urine Glucose (UA) Urine Ketones Urine Blood Urine Nitrate Urine Bilirubin Urine Urobilinogen Urine Leukocytes Urine RBC Urine WBC Hyaline Casts Ur Culture Indicated? Urine Test Urine Opiates Screen Ur Barbiturates Screen Ur Phencyclidine Scrn U Amphetamine/Methamph U Benzodiazepines Scrn U Cocaine Metab Screen U Cannabinoids Screen 04/25/17 04/25/17 04/25/17 23:40 23:06 23:00 WBC RBC Hgb Hct MCV MCH MCHC RDW Plt Count MPV Neut % (Auto) Lymph % (Auto) [place] % (Auto) Eos % (Auto) Baso % (Auto) Neut # (Auto) Lymph # (Auto) [place] # (Auto) Eos # (Auto) Baso # (Auto) Total Counted Immature Gran % Nucleated RBC % Immature Gran # Segmented Neutrophils Band Neutrophils Lymphocytes Monocytes Metamyelocytes Nucleated RBCs # Platelet Estimate Polychromasia Hypochromasia INR PT Patient/Control Mix ABG pH 7.170 L* ABG pCO2 19.3 L* ABG pO2 93.3 ABG HCO3 6.9 L ABG Total CO2 7.5 L ABG O2 Saturation 95.1 ABG Base Excess -19.8 L Hemoglobin Hematocrit FiO2 Sodium 147 H Potassium 4.3 Chloride 116 H Carbon Dioxide 9 L Anion Gap 26.3 H BUN 24 H Creatinine 1.20 H GFR Calculation 57 BUN/Creatinine Ratio 20.00 Glucose 498 H POC Glucose 467 H Hemoglobin A1c Calculated Osmolality 317.4 H Lactic Acid Calcium 7.9 L Phosphorus Magnesium Total Bilirubin AST ALT Alkaline Phosphatase Total Protein Albumin Globulin Albumin/Globulin Ratio Amylase Lipase b-Hydroxybutyric mmol/L Urine Color Urine Appearance Urine pH Ur Specific [place] Urine Protein Urine Glucose (UA) Urine Ketones Urine Blood Urine Nitrate Urine Bilirubin Urine Urobilinogen Urine Leukocytes Urine RBC Urine WBC Hyaline Casts Ur Culture Indicated? Urine Test Urine Opiates Screen Ur Barbiturates Screen Ur Phencyclidine Scrn U Amphetamine/Methamph U Benzodiazepines Scrn U Cocaine Metab Screen U Cannabinoids Screen 04/25/17 04/25/17 04/25/17 21:57 21:10 21:00 WBC RBC Hgb Hct MCV MCH MCHC RDW Plt Count MPV Neut % (Auto) Lymph % (Auto) [place] % (Auto) Eos % (Auto) Baso % (Auto) Neut # (Auto) Lymph # (Auto) [place] # (Auto) Eos # (Auto) Baso # (Auto) Total Counted Immature Gran % Nucleated RBC % Immature Gran # Segmented Neutrophils Band Neutrophils Lymphocytes Monocytes Metamyelocytes Nucleated RBCs # Platelet Estimate Polychromasia Hypochromasia INR PT Patient/Control Mix ABG pH 7.226 L ABG pCO2 19.2 L* ABG pO2 121.9 H ABG HCO3 7.8 L ABG Total CO2 8.4 L ABG O2 Saturation 97.8 ABG Base Excess -18.0 L Hemoglobin Hematocrit FiO2 Sodium Potassium Chloride Carbon Dioxide Anion Gap BUN Creatinine GFR Calculation BUN/Creatinine Ratio Glucose POC Glucose 483 H > 500 H* Hemoglobin A1c Calculated Osmolality Lactic Acid Calcium Phosphorus Magnesium Total Bilirubin AST ALT Alkaline Phosphatase Total Protein Albumin Globulin Albumin/Globulin Ratio Amylase Lipase b-Hydroxybutyric mmol/L Urine Color Urine Appearance Urine pH Ur Specific [place] Urine Protein Urine Glucose (UA) Urine Ketones Urine Blood Urine Nitrate Urine Bilirubin Urine Urobilinogen Urine Leukocytes Urine RBC Urine WBC Hyaline Casts Ur Culture Indicated? Urine Test Urine Opiates Screen Ur Barbiturates Screen Ur Phencyclidine Scrn U Amphetamine/Methamph U Benzodiazepines Scrn U Cocaine Metab Screen U Cannabinoids Screen 04/25/17 04/25/17 04/25/17 21:00 20:10 20:09 WBC RBC Hgb Hct MCV MCH MCHC RDW Plt Count MPV Neut % (Auto) Lymph % (Auto) [place] % (Auto) Eos % (Auto) Baso % (Auto) Neut # (Auto) Lymph # (Auto) [place] # (Auto) Eos # (Auto) Baso # (Auto) Total Counted Immature Gran % Nucleated RBC % Immature Gran # Segmented Neutrophils Band Neutrophils Lymphocytes Monocytes Metamyelocytes Nucleated RBCs # Platelet Estimate Polychromasia Hypochromasia INR PT Patient/Control Mix ABG pH ABG pCO2 ABG pO2 ABG HCO3 ABG Total CO2 ABG O2 Saturation ABG Base Excess Hemoglobin Hematocrit FiO2 Sodium Potassium Chloride Carbon Dioxide Anion Gap BUN Creatinine GFR Calculation BUN/Creatinine Ratio Glucose 559 H* 497 H POC Glucose > 500 H* Hemoglobin A1c Calculated Osmolality Lactic Acid Calcium Phosphorus Magnesium Total Bilirubin AST ALT Alkaline Phosphatase Total Protein Albumin Globulin Albumin/Globulin Ratio Amylase Lipase b-Hydroxybutyric mmol/L Urine Color Urine Appearance Urine pH Ur Specific [place] Urine Protein Urine Glucose (UA) Urine Ketones Urine Blood Urine Nitrate Urine Bilirubin Urine Urobilinogen Urine Leukocytes Urine RBC Urine WBC Hyaline Casts Ur Culture Indicated? Urine Test Urine Opiates Screen Ur Barbiturates Screen Ur Phencyclidine Scrn U Amphetamine/Methamph U Benzodiazepines Scrn U Cocaine Metab Screen U Cannabinoids Screen 04/25/17 04/25/17 04/25/17 19:25 19:22 19:00 WBC RBC Hgb Hct MCV MCH MCHC RDW Plt Count MPV Neut % (Auto) Lymph % (Auto) [place] % (Auto) Eos % (Auto) Baso % (Auto) Neut # (Auto) Lymph # (Auto) [place] # (Auto) Eos # (Auto) Baso # (Auto) Total Counted Immature Gran % Nucleated RBC % Immature Gran # Segmented Neutrophils Band Neutrophils Lymphocytes Monocytes Metamyelocytes Nucleated RBCs # Platelet Estimate Polychromasia Hypochromasia INR PT Patient/Control Mix ABG pH 7.305 L ABG pCO2 24.3 L ABG pO2 118.0 H ABG HCO3 14.3 L ABG Total CO2 11.1 L ABG O2 Saturation 98.6 ABG Base Excess -13.0 L Hemoglobin Hematocrit FiO2 21.00 Sodium Potassium Chloride Carbon Dioxide Anion Gap BUN Creatinine GFR Calculation BUN/Creatinine Ratio Glucose 419 H POC Glucose > 500 H* Hemoglobin A1c Calculated Osmolality Lactic Acid Calcium Phosphorus Magnesium Total Bilirubin AST ALT Alkaline Phosphatase Total Protein Albumin Globulin Albumin/Globulin Ratio Amylase Lipase b-Hydroxybutyric mmol/L Urine Color Urine Appearance Urine pH Ur Specific [place] Urine Protein Urine Glucose (UA) Urine Ketones Urine Blood Urine Nitrate Urine Bilirubin Urine Urobilinogen Urine Leukocytes Urine RBC Urine WBC Hyaline Casts Ur Culture Indicated? Urine Test Urine Opiates Screen Ur Barbiturates Screen Ur Phencyclidine Scrn U Amphetamine/Methamph U Benzodiazepines Scrn U Cocaine Metab Screen U Cannabinoids Screen 04/25/17 04/25/17 04/25/17 18:00 17:53 16:50 WBC RBC Hgb Hct MCV MCH MCHC RDW Plt Count MPV Neut % (Auto) Lymph % (Auto) [place] % (Auto) Eos % (Auto) Baso % (Auto) Neut # (Auto) Lymph # (Auto) [place] # (Auto) Eos # (Auto) Baso # (Auto) Total Counted Immature Gran % Nucleated RBC % Immature Gran # Segmented Neutrophils Band Neutrophils Lymphocytes Monocytes Metamyelocytes Nucleated RBCs # Platelet Estimate Polychromasia Hypochromasia INR PT Patient/Control Mix ABG pH ABG pCO2 ABG pO2 ABG HCO3 ABG Total CO2 ABG O2 Saturation ABG Base Excess Hemoglobin Hematocrit FiO2 Sodium 144 Potassium 3.7 Chloride 109 H Carbon Dioxide 12 L Anion Gap 26.7 H BUN 25 H Creatinine 1.50 H GFR Calculation 44 BUN/Creatinine Ratio 16.00 Glucose 552 H* 688 H* POC Glucose > 500 H* Hemoglobin A1c Calculated Osmolality 314.8 H Lactic Acid Calcium 8.7 Phosphorus Magnesium Total Bilirubin AST ALT Alkaline Phosphatase Total Protein Albumin Globulin Albumin/Globulin Ratio Amylase Lipase b-Hydroxybutyric mmol/L Urine Color Urine Appearance Urine pH Ur Specific [place] Urine Protein Urine Glucose (UA) Urine Ketones Urine Blood Urine Nitrate Urine Bilirubin Urine Urobilinogen Urine Leukocytes Urine RBC Urine WBC Hyaline Casts Ur Culture Indicated? Urine Test Urine Opiates Screen Ur Barbiturates Screen Ur Phencyclidine Scrn U Amphetamine/Methamph U Benzodiazepines Scrn U Cocaine Metab Screen U Cannabinoids Screen 04/25/17 04/25/17 04/25/17 16:49 14:28 14:09 WBC RBC Hgb Hct MCV MCH MCHC RDW Plt Count MPV Neut % (Auto) Lymph % (Auto) [place] % (Auto) Eos % (Auto) Baso % (Auto) Neut # (Auto) Lymph # (Auto) [place] # (Auto) Eos # (Auto) Baso # (Auto) Total Counted Immature Gran % Nucleated RBC % Immature Gran # Segmented Neutrophils Band Neutrophils Lymphocytes Monocytes Metamyelocytes Nucleated RBCs # Platelet Estimate Polychromasia Hypochromasia INR PT Patient/Control Mix ABG pH 7.144 L* ABG pCO2 20.2 L* ABG pO2 198.9 H ABG HCO3 6.8 L ABG Total CO2 7.4 L ABG O2 Saturation 98.7 ABG Base Excess -20.3 L Hemoglobin Hematocrit FiO2 Sodium Potassium Chloride Carbon Dioxide Anion Gap BUN Creatinine GFR Calculation BUN/Creatinine Ratio Glucose POC Glucose > 500 H* Hemoglobin A1c Calculated Osmolality Lactic Acid Calcium Phosphorus 8.6 H Magnesium Total Bilirubin AST ALT Alkaline Phosphatase Total Protein Albumin Globulin Albumin/Globulin Ratio Amylase Lipase b-Hydroxybutyric mmol/L Urine Color Urine Appearance Urine pH Ur Specific [place] Urine Protein Urine Glucose (UA) Urine Ketones Urine Blood Urine Nitrate Urine Bilirubin Urine Urobilinogen Urine Leukocytes Urine RBC Urine WBC Hyaline Casts Ur Culture Indicated? Urine Test Urine Opiates Screen Ur Barbiturates Screen Ur Phencyclidine Scrn U Amphetamine/Methamph U Benzodiazepines Scrn U Cocaine Metab Screen U Cannabinoids Screen 04/25/17 04/25/17 04/25/17 14:09 14:09 14:09 WBC RBC Hgb Hct MCV MCH MCHC RDW Plt Count MPV Neut % (Auto) Lymph % (Auto) [place] % (Auto) Eos % (Auto) Baso % (Auto) Neut # (Auto) Lymph # (Auto) [place] # (Auto) Eos # (Auto) Baso # (Auto) Total Counted Immature Gran % Nucleated RBC % Immature Gran # Segmented Neutrophils Band Neutrophils Lymphocytes Monocytes Metamyelocytes Nucleated RBCs # Platelet Estimate Polychromasia Hypochromasia INR PT Patient/Control Mix ABG pH ABG pCO2 ABG pO2 ABG HCO3 ABG Total CO2 ABG O2 Saturation ABG Base Excess Hemoglobin Hematocrit FiO2 Sodium 134 L Potassium 5.3 H Chloride 96 L Carbon Dioxide 9 L Anion Gap 34.3 H BUN 26 H Creatinine 1.80 H GFR Calculation 35 BUN/Creatinine Ratio 14.00 Glucose 925 H* POC Glucose Hemoglobin A1c Calculated Osmolality 318.2 H Lactic Acid 4.9 H Calcium 10.3 H Phosphorus Magnesium 2.0 Total Bilirubin 0.70 AST 23 ALT 34 Alkaline Phosphatase 136 H Total Protein 7.2 Albumin 3.0 L Globulin 4.2 H Albumin/Globulin Ratio 0.7 L Amylase 28 Lipase 47.0 L b-Hydroxybutyric mmol/L Urine Color Urine Appearance Urine pH Ur Specific [place] Urine Protein Urine Glucose (UA) Urine Ketones Urine Blood Urine Nitrate Urine Bilirubin Urine Urobilinogen Urine Leukocytes Urine RBC Urine WBC Hyaline Casts Ur Culture Indicated? Urine Test Urine Opiates Screen Negative Ur Barbiturates Screen Negative Ur Phencyclidine Scrn Negative U Amphetamine/Methamph Negative U Benzodiazepines Scrn Negative U Cocaine Metab Screen Negative U Cannabinoids Screen Negative 04/25/17 04/25/17 14:09 13:49 WBC 14.9 H RBC 3.97 Hgb 11.3 L Hct 36.5 MCV 91.9 MCH 29 MCHC 31.0 L RDW 12.8 Plt Count 293 MPV 11.9 Neut % (Auto) 79.8 H Lymph % (Auto) 10.5 L [place] % (Auto) 6.2 Eos % (Auto) 0.1 Baso % (Auto) 0.4 Neut # (Auto) 11.9 H Lymph # (Auto) 1.6 [place] # (Auto) 0.9 H Eos # (Auto) 0.0 Baso # (Auto) 0.1 Total Counted 100 Immature Gran % 3.0 Nucleated RBC % 0.0 Immature Gran # 0.44 Segmented Neutrophils 80 Band Neutrophils 2 Lymphocytes 13 L Monocytes 5 Metamyelocytes Nucleated RBCs # 0.00 Platelet Estimate Normal Polychromasia Slight Hypochromasia INR PT Patient/Control Mix ABG pH ABG pCO2 ABG pO2 ABG HCO3 ABG Total CO2 ABG O2 Saturation ABG Base Excess Hemoglobin Hematocrit FiO2 Sodium Potassium Chloride Carbon Dioxide Anion Gap BUN Creatinine GFR Calculation BUN/Creatinine Ratio Glucose POC Glucose Hemoglobin A1c Calculated Osmolality Lactic Acid Calcium Phosphorus Magnesium Total Bilirubin AST ALT Alkaline Phosphatase Total Protein Albumin Globulin Albumin/Globulin Ratio Amylase Lipase b-Hydroxybutyric mmol/L 5.1 H Urine Color Straw Urine Appearance Clear Urine pH 6.0 Ur Specific [place] 1.014 Urine Protein 30 Urine Glucose (UA) >=500 Urine Ketones 80 Urine Blood Moderate Urine Nitrate Negative Urine Bilirubin Negative Urine Urobilinogen < 2.0 H Urine Leukocytes Negative Urine RBC 2 Urine WBC 1 Hyaline Casts 1 Ur Culture Indicated? Not indicated Urine Test Negative Urine Opiates Screen Ur Barbiturates Screen Ur Phencyclidine Scrn U Amphetamine/Methamph U Benzodiazepines Scrn U Cocaine Metab Screen U Cannabinoids Screen DS: Provider Date of admission: 04/25/17 14:54 Primary care physician: Cirilo Rhoades MD Attending physician on admission: Lucille Morgan MD Consults: 04/25/17 14:54 Consult to [facility], Educator [CONS] Routine Reason for Director Medical Economics: Diabetes Education Initial Insulin Education Consult Comment: INSULIN EDUCATION 04/25/17 17:31 Consult to Diabetes Center, Educator [CONS] Routine Reason for Director Medical Economics: Diabetes Education 04/25/17 17:33 Consult to Pastoral Services [CONS] Routine Comment: Pastoral Screen: Request Internal Medicine Hospitalist Visit Pastoral Screen Source of Request: Family Name of Physician Requesting: Eddie 04/26/17 08:53 Consult to Physician [CONS] Routine Comment: Pneumonia, Resp. Failure Consulting Provider: Kenny Devries Discharging clinician: Lucille Morgan MD Expected date of discharge: 04/26/17
[2017-04-26] MEDS ORDERED: ENOXAPARIN 40 MG/0.4 ML SYRINGE SUBCUT SCH (15:00)
[2017-04-26 16:14] VITALS: BP 67/34
--- NOTE | 2017-04-26 16:30 | ECHO Report ---
C[facility] Lowe Exam Date: 04/26/2017 10:06 Referring Physician: Technologist: Kay Bob RDCS Age: 22 Ht (in): 58 Wt (lb): 101 Gender: F Exam Location: [facility] Echo Indications: Acute respiratory failure, unspecified whether with hypoxia or hypercapnia, s/p Respiratory arrest, Down's Syndrome, DKA BP: 82 / 61 HR: 160 Rhythm: Sinus Technical Quality: Technically difficult study IMPRESSIONS Normal left ventricular cavity size. Normal left ventricular wall thickness. Left ventricular ejection fraction is estimated at 55 %. The right ventricle is normal in size and function. The right atrium is normal in size. The left atrium is normal in size. Morphologically normal mitral valve without significant stenosis or prolapse. There is no mitral regurgitation. Morphologically normal aortic valve without significant sclerosis or stenosis. There is no aortic regurgitation. Morphologically normal tricuspid valve. Mild tricuspid valve regurgitation. Tricuspid regurgitation velocities suggest a PAP of 41 mmHg. Morphologically normal pulmonic valve. Mild pulmonary valve regurgitation. Normal pericardium without effusion. Normal ascending aorta dimension. MEASUREMENTS (Male / Female) Normal Values 2D ECHO LV Diastolic Diameter PLAX 3.4 cm 4.2 - 5.9 / 3.9 - 5.3 cm LV Systolic Diameter PLAX 2.6 cm LV Fractional Shortening PLAX 22.9 % IVS Diastolic Thickness 0.8 cm 0.6 - 1.0 / 0.6 - 0.9 cm LVPW Diastolic Thickness 0.8 cm 0.6 - 1.0 / 0.6 - 0.9 cm RV Internal Dim ED PLAX 3.0 cm Aortic Root Diameter 2.5 cm LA Systolic Diameter LX 2.6 cm 3.0 - 4.0 / 2.7 - 3.8 cm DOPPLER TR Peak Velocity 277.0 cm/s TR Peak Gradient 30.7 mmHg FINDINGS Left Ventricle Normal left ventricular cavity size. Normal left ventricular wall thickness. Left ventricular ejection fraction is estimated at 55 %. Right Ventricle The right ventricle is normal in size and function. Right Atrium The right atrium is normal in size. Left Atrium The left atrium is normal in size. Mitral Valve Morphologically normal mitral valve without significant stenosis or prolapse. There is no mitral regurgitation. Aortic Valve Morphologically normal aortic valve without significant sclerosis or stenosis. There is no aortic regurgitation. Tricuspid Valve Morphologically normal tricuspid valve. Mild tricuspid valve regurgitation. Tricuspid regurgitation velocities suggest a PAP of 41 mmHg. Pulmonic Valve Morphologically normal pulmonic valve. Mild pulmonary valve regurgitation. Pericardium Normal pericardium without effusion. Aorta Normal ascending aorta dimension. Anish Alaniz MD (Electronically Signed) Final Date: 26 April 2017 16:29
== END 2017-04-26 14:10 | disposition expired | DRG 950 ==
LOC: N.ED 13:34 → N.EDINP 14:54 → N.ICU 15:49
PROVIDERS: ADMIT Family Medicine; ATTEND Family Medicine